=== PATIENT | male | born 1995 | race Caucasian/White ===

== ENCOUNTER 2017-05-25 11:15 | Emergency (ER) | payer OTHER ==
[2017-05-25 12:15] VITALS: BP 147/85
--- NOTE | 2017-05-25 12:51 | UC ---
Lower Extremity/Ankle HPI - HPI Summary HPI Summary: 22 y/o male presents to the urgent care c/o left ankle pain s/p fall at work around 0930 AM. Pt reports she was walking down 4 stairs and slipped on the ice and twisted his left ankle. He felt a pop. Now pain is 2/10, specially walking up the stairs and with mild limping. He able to walk. His supervisors sent him to be check to r/o any abnormality. He has FROM. he has not taking anything to alleviate symptoms. Pt denies numbness or tingling sensation over the left foot , SOB, chest pain, abdominal pain, N/V/D - History of Current Complaint Chief Complaint: UCLowerExtremity Stated Complaint: S/P FALL LEFT ANKLE INJURY WC Time Seen by Provider: 05/25/17 12:34 Hx Obtained From: Patient Onset/Duration: Sudden Onset, Lasting Hours - 3 hrs ago, Still Present Severity Initially: Mild Severity Currently: Mild Pain Intensity: 2 Pain Scale Used: 0-10 Numeric Aggravating Factor(s): Other - going up the stairs Alleviating Factor(s): Rest, Ice Able to Bear Weight: Yes - Risk Factors Gout Risk Factors: Negative DVT Risk Factors: Negative Septic Arthritis Risk Factor: Negative - Allergies/Home Medications Allergies/Adverse Reactions: Allergies Allergy/AdvReac Type Severity Reaction Status Date / Time Penicillins Allergy Intermediate Hives Verified 05/25/17 12:15 Home Medications: Home Medications [place]-3 Fatty Acids [Fish Oil] 1,000 mg PO DAILY 05/25/17 [History Confirmed ] PMH/Surg Hx/FS Hx/Imm Hx Previously Healthy: Yes - Pt denies PMHX - Surgical History Surgical History: Yes Surgery Procedure, Year, and Place: hernia surg as a child - Family History Known Family History: Positive: Hypertension - Social History Occupation: Employed Full-time Lives: With Family Alcohol Use: Occasionally Alcohol Amount: 2 times a week Substance Use Type: None Smoking Status (MU): Never Smoked Tobacco - Immunization History Most Recent Influenza Vaccination: [id number] Review of Systems Constitutional: Negative Skin: Negative Eyes: Negative ENT: Negative Respiratory: Negative Cardiovascular: Negative Gastrointestinal: Negative Genitourinary: Negative Motor: Negative Neurovascular: Negative Musculoskeletal: Other: - Left ankle pain Neurological: Negative Psychological: Negative Is Patient Immunocompromised?: No All Other Systems Reviewed And Are Negative: Yes Physical Exam Triage Information Reviewed: Yes Vital Signs: Initial Vital Signs Temp 97.8 F 05/25/17 12:11 Pulse 67 05/25/17 12:11 Resp 16 05/25/17 12:11 BP 147/85 05/25/17 12:11 - Additional Comments Vital Signs Reviewed: Yes General: well developed, well nourished male, sitting in the examining table w/ o any apparent distress Eyes: Positive: Conjunctiva Clear - PERRLA, EOMI, ENT: Positive: Normal ENT inspection, Hearing grossly normal, Pharynx normal, TMs normal Neck: Positive: Supple, Nontender, No Lymphadenopathy Respiratory: Positive: Chest non-tender, Lungs clear, Normal breath sounds, No respiratory distress Cardiovascular: Positive: RRR, No Murmur, Pulses Normal, Brisk Capillary Refill Abdomen Description: Positive: Nontender, No Organomegaly, Soft. Negative: CVA Tenderness (R), CVA Tenderness (L) Bowel Sounds: Positive: Present Musculoskeletal: - Ankle: Pt is able to bear weight and ambulate w/ limping. The L ankle is without obvious asymmetry or deformity when compared to the L ankle. Decreased ROM due to pain. discrete swelling at the lateral malleolus, with tenderness to palpation. No ecchymosis or bruising observed. Talar tilt test is negative for ligament laxity to valgus or varus stress. Negative anterior drawer. Peroneal nerve is intact with strong eversion and plantar flexion. Positive sensation over the L foot and L ankle, positive pulses, capillary refill intact Neurological Exam: Normal Psychological Exam: Normal Skin: warm and dry Lower Extremity Course/Dx - Course Course Of Treatment: 22 y/o male presents to the urgent care c/o left ankle pain s/p fall at work around 0930 AM. Pt reports she was walking down 4 stairs and slipped on the ice and twisted his left ankle. He felt a pop. Now pain is 2/ 10, specially walking up the stairs and with mild limping. He able to walk. His supervisors sent him to be check to r/o any abnormality. He has FROM. he has not taking anything to alleviate symptoms. Pt denies numbness or tingling sensation over the left foot, SOB, chest pain, abdominal pain, N/V/D. Hx obtained.Rt ankle X-ray ordered, Impression: No acute osseous injury observe. Pt most likely with a LF ankle Sprain. Pt immobilized with gel ankle splint to , Rx Naproxen PO to decrease swelling and pain. Pt advised RICE, and to f/u with PCP on orthopedic Dr Bronson in 1 week if not improvement of symptoms for further treatment. Pt's BP is elevated today advised to decrease salt in diet, monitor BP and f/u with PCP for further management. Pt understood and agreed and left the clinic ambulating - Differential Dx/Diagnosis Differential Diagnosis/HQI/PQRI: Arthritis, Contusion, Fracture (Closed), Sprain , Strain, Tendonitis Provider Diagnoses: 1- Left ankle sprain s/p injury. 2- elevated BP w/o Hx of HTN Discharge - Discharge Plan Condition: Stable Disposition: HOME Prescriptions: Naproxen [Naproxen EC 500 MG TAB] 500 mg PO Q8HR PRN #20 tab PRN Reason: Pain Patient Education Materials: Ankle Sprain (ED), Low-Sodium Diet (ED) Referrals: [facility] [place] [facility] [Outside] - 1 Week Rashaad Bronson MD [Medical Doctor] - 1 Week Additional Instructions: 1-Please take medications as directed to alleviate pain and swelling. 2-Please apply ice, keep your ankle immobilized with the splint. Avoid weight bearing using the crutches 3- Please f/u with Orthopedic Dr Bornson or your PCP in 1 week is not improvement of symptoms for further evaluation and treatment. 4-Your BP is elevated today. please decrease salt in your diet, monitor BP and if it continues to be elevated please f/u with your PCP for further management
--- NOTE | 2017-05-25 13:05 | RAD ---
HISTORY: Left ankle pain status post fall COMPARISONS: None VIEWS: 3, Frontal, lateral, and oblique views of the left ankle FINDINGS: BONE DENSITY: Normal. BONES: There is no displaced fracture. JOINTS: There is no arthropathy. ALIGNMENT: There is no dislocation. SOFT TISSUES: Unremarkable. OTHER FINDINGS: None. IMPRESSION: NO ACUTE OSSEOUS INJURY. IF SYMPTOMS PERSIST, RECOMMEND REPEAT IMAGING.
== END 2017-05-25 13:28 | disposition home or self-care (01) ==
LOC: UCCORT 11:15
DX: S93.402A Sprain of unspecified ligament of left ankle, initial encounter (principal); W00.1XXA Fall from stairs and steps due to ice and snow, initial encounter; Y93.01 Activity, walking, marching and hiking; Y92.9 Unspecified place or not applicable; R03.0 Elevated blood-pressure reading, without diagnosis of hypertension; Z72.89 Other problems related to lifestyle
CPT/HCPCS: 99213; G0463

== ENCOUNTER 2018-03-04 16:49 | Emergency (ER) | payer OTHER ==
[2018-03-04 17:05] VITALS: BP 146/84
--- NOTE | 2018-03-04 17:38 | UC ---
Throat Pain/Nasal [place] HPI - HPI Summary HPI Summary: Developed L-sided ST about a week ago. Pain slowly receded, but now has sensation of something stuck in his throat. Denies difficulty breathing or swallowing. - History of Current Complaint Chief Complaint: UCRespiratory Stated Complaint: SORE THROAT Time Seen by Provider: 03/04/18 17:15 Hx Obtained From: Patient Onset/Duration: Gradual Onset, Lasting Days Severity: Mild Pain Intensity: 0 Cough: None Associated Signs & Symptoms: Positive: Negative - Allergies/Home Medications Allergies/Adverse Reactions: Allergies Allergy/AdvReac Type Severity Reaction Status Date / Time Penicillins Allergy Intermediate Hives Verified 03/04/18 16:57 Home Medications: Home Medications NK [No Home Medications Reported] 03/04/18 [History Confirmed 03/04/18] PMH/Surg Hx/FS Hx/Imm Hx Previously Healthy: Yes - Surgical History Surgical History: Yes Surgery Procedure, Year, and Place: hernia surgery as child. lasik. wisdom teeth - Family History Known Family History: Positive: Hypertension - Social History Occupation: Employed Full-time - [employer] Alcohol Use: Occasionally Alcohol Amount: 2 times a week Substance Use Type: None Smoking Status (MU): Never Smoked Tobacco Type: Smokeless Tobacco - Immunization History Most Recent Influenza Vaccination: [id number] Review of Systems Constitutional: Negative Skin: Negative Eyes: Negative ENT: Sore Throat Respiratory: Negative Cardiovascular: Negative Gastrointestinal: Negative Genitourinary: Negative Motor: Negative Neurovascular: Negative Musculoskeletal: Negative Neurological: Negative Psychological: Negative Is Patient Immunocompromised?: No All Other Systems Reviewed And Are Negative: Yes Physical Exam Triage Information Reviewed: Yes Appearance: Well-Appearing, No Pain Distress, Well-Nourished Vital Signs: Initial Vital Signs Temp 98.7 F 03/04/18 16:59 Pulse 65 03/04/18 16:59 Resp 16 03/04/18 16:59 BP 146/84 03/04/18 16:59 Pulse Ox 100 03/04/18 16:59 Vital Signs Reviewed: Yes Eye Exam: Normal Eyes: Positive: Conjunctiva Clear ENT: Positive: TMs normal, Uvula midline, Other - Bilat tonsils enlarged, L tonsil has separate, vascular, approx 1cm lobulated lesion protruding from it. 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 elevated blood pressure due to discomfort Discharge - Sign-Out/Discharge Documenting (check all that apply): Patient Departure All imaging exams completed and their final reports reviewed: No Studies - Discharge Plan Condition: Stable Disposition: HOME Referrals: Zhao Solorzano MD [Medical Doctor] - As Soon As Possible Additional Instructions: Rapid strep negative The new growth on your tonsil needs follow up with an ENT as soon as you can get an appointment. If you develop trouble breathing, swallowing, or bleeding in the meantime, please go to the emergency department. - Billing Disposition and Condition Condition: STABLE Disposition: Home
== END 2018-03-04 17:40 | disposition home or self-care (01) ==
LOC: UCCORT 16:49
DX: C09.9 Malignant neoplasm of tonsil, unspecified (principal); R03.0 Elevated blood-pressure reading, without diagnosis of hypertension; Z88.0 Allergy status to penicillin
CPT/HCPCS: 87651; 99211; G0463